=== PATIENT | male | born 1940 | race Caucasian/White ===

== ENCOUNTER → 2016-12-23 | Outpatient (CLI) | payer MEDICARE ==
[~2016-12-23] MED LIST: CRESTOR20 MG PO; LEVOTHROID(SYN75 MCG PO; NEURONTIN100 MG PO; NITROSTAT0.4 MG SL; NORCO 5-325 MG1 TAB PO; PLAVIX75 MG PO; PRINIVIL OR ZES10 MG PO; PROTONIX40 MG PO; SINEMET 25-1001 EACH PO
== END | disposition disaster alternative care site (69) ==
LOC: GAMB 09:53
DX: B99.9 Unspecified infectious disease (principal); M25.511 Pain in right shoulder; I10 Essential (primary) hypertension; E03.9 Hypothyroidism, unspecified; Z79.899 Other long term (current) drug therapy
CPT/HCPCS: A0425; A0429

== ENCOUNTER → 2017-01-25 | Outpatient (CLI) | payer MEDICARE | END | disposition disaster alternative care site (69) | LOC: GKIC 11:33 → GRAD 16:00 | DX: C34.31 Malignant neoplasm of lower lobe, right bronchus or lung (principal); J98.59 Other diseases of mediastinum, not elsewhere classified; C78.1 Secondary malignant neoplasm of mediastinum | CPT/HCPCS: A9552 ==

== ENCOUNTER 2017-02-27 16:42 | Emergency (ER) | payer MEDICARE ==
--- NOTE | ~2017-02-27 | ER ---
PATIENT'S NAME: ZAHRA ROONEY [facility] AGE: 76 Y [address] ROOM: [place] [address] LOCATION: ED ADMIT DATE: 02/27/2017 ER/Outpatient Report DISCHARGE DATE: 02/27/2017 FAMILY PHYSICIAN: Greyson Rick MD ATTENDING PHYSICIAN: Zaire Carolina TIME OF ARRIVAL: 1642 hours. TIME OF EVALUATION: 1700 hours. CHIEF COMPLAINT: Sore throat. HISTORY OF PRESENT ILLNESS: The patient is a 76-year-old male who presents to the emergency department today with chief complaint of sore throat. He reports this started about 2 days prior to arrival. He reports that he saw Ear, Nose, and Throat. He looked ill, denies any obvious abnormalities. The patient was given some Carafate per [facility] recommendations, that did help a little bit, but now it continues to hurt. He does not have any troubles breathing. He denies any fevers or chills. No nausea or vomiting. No diarrhea or constipation. 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 Pain is 10/10. Worse when he swallows, it is sharp. PAST MEDICAL HISTORY: 1. Small cell lung cancer with chemo and radiation. 2. Hypertension. 3. Heart disease. PAST SURGICAL HISTORY: Coronary artery bypass grafting and stents in the heart and legs. SOCIAL HISTORY: The patient quit smoking 1 week ago. He smokes about half pack for 30 years. He denies any alcohol or illicit drug use. ALLERGIES: NO KNOWN DRUG ALLERGIES. MEDICATIONS: Please see list. PRIMARY CARE DOCTOR: PATIENT'S NAME: ZAHRA ROONEY [facility] AGE: 76 Y [address] ROOM: [place], [place] [address] LOCATION: [facility] ADMIT DATE: 02/27/2017 ER/Outpatient Report DISCHARGE DATE: 02/27/2017 FAMILY PHYSICIAN: Greyson Rick MD ATTENDING PHYSICIAN: Zaire Carolina MD. ENT: MD Kiran. HEM/ONC: 1. Leilani Gary APRN. 2. Arturo Gerard MD, PhD. REVIEW OF SYSTEMS: All systems are reviewed by myself and negative with the exception of those discussed in the HPI and past medical history. PHYSICAL EXAMINATION: VITAL SIGNS: Weight 78.6 kg. Blood pressure 136/76, pulse 95, respiratory rate 18, temperature 97.8, and oxygen saturation 97% on room air. GENERAL: The patient is a 76-year-old male, who appears stated age. HEENT: Head: Normocephalic and atraumatic. Pupils are equal, round, and reactive to light. Extraocular motions are intact. Nares are patent bilaterally. TMs are clear. Oropharynx is clear. NECK: Supple. There is no nuchal rigidity. CARDIOVASCULAR: Regular rate and rhythm. No murmurs, rubs, or gallops. LUNGS: Clear to auscultation bilaterally. No wheezes, rales, or rhonchi. ABDOMEN: Soft, nontender, and nondistended. No rebound, rigidity, or guarding. MUSCULOSKELETAL: The patient moves all 4 extremities. SKIN: Warm and dry. LABORATORY DATA AND IMAGING STUDIES: Labs and x-rays, none. IMPRESSION: 1. Pharyngitis. 2. Initial visit. EMERGENCY DEPARTMENT COURSE: The patient was brought back to the examination room. Seen and evaluated by myself. Evaluation is made. The patient does look very comfortable except when he tries to swallow. I see no obvious abnormality noted on physical exam. We have given the patient some viscous lidocaine orally. He is much improved after the viscous lidocaine. I have discussed with the patient. Recommend following back up with Dr. Beck for perhaps further evaluation of the back of throat by potential scope. He is to call to make an appointment. The patient does have an excellent overall clinical appearance. At this time, he does not have any respiratory distress. I have discussed return to care PATIENT'S NAME: ZAHRA ROONEY [facility] AGE: 76 Y [address] ROOM: [place] [address] LOCATION: ED ADMIT DATE: 02/27/2017 ER/Outpatient Report DISCHARGE DATE: 02/27/2017 FAMILY PHYSICIAN: Greyson Rick MD ATTENDING PHYSICIAN: Zaire Carolina instructions including respiratory distress, worsening breathing, worsening swelling, or any other concerns to return to the emergency department for re- evaluation. The patient is agreeable. He is without further questions. At the time of disposition, the patient discharged to home in good condition. DO DONTA LUO/reji /[id number] d: 02/28/17 1154 t: 03/09/17 0651, OUTPATIENT REPORT
== END 2017-02-27 17:51 | disposition disaster alternative care site (69) ==
LOC: GMED 16:42
DX: J02.9 Acute pharyngitis, unspecified (principal); C34.90 Malignant neoplasm of unspecified part of unspecified bronchus or lung; I11.9 Hypertensive heart disease without heart failure; Z79.899 Other long term (current) drug therapy; Z87.891 Personal history of nicotine dependence; Z95.1 Presence of aortocoronary bypass graft; Z95.828 Presence of other vascular implants and grafts
CPT/HCPCS: J1100